=== PATIENT | male | born 1995 | race Caucasian/White ===

== ENCOUNTER 2016-12-19 23:42 | Emergency (ER) | payer OTHER ==
[2016-12-20 00:30] VITALS: BP 130/75; PULSE 80; TEMP 97.8; BMI 33.5
--- NOTE | 2016-12-20 01:29 | PDOC ---
[id number] No Limitations - History of Present Illness Presenting Symptoms: Chest Pain (subsided) Timing/Duration: reports: resolved prior to arrival <RicardoJesse - Last Filed: 12/20/16 02:43> <Michael Potts - Last Filed: 12/28/16 06:17> - General Chief Complaint: Pain, Acute Stated Complaint: LT ARM PAIN/NUMB/SOB/LT LEG NUMB/CHEST PAIN Time Seen by Provider: 12/20/16 00:33 Past History - Travel Traveled outside of the country in the last 30 days: No Close contact w/someone who was outside of country & ill: No - Past Medical History Hypercholesterolemia: Yes - Immunization History Immunization Up to Date: Yes - Psycho/Social/Smoking Cessation Hx Anxiety: No Suicidal Ideation: No Smoking Status: No Smoking History: Never smoked Have you smoked in the past 12 months: No Number of Cigarettes Smoked Daily: 0 Information on smoking cessation initiated: No Hx Alcohol Use: No Drug/Substance Use Hx: No Substance Use Type: Alcohol <RicardoJesse - Last Filed: 12/20/16 02:43> <Michael Potts - Last Filed: 12/28/16 06:17> - Past Medical History Allergies/Adverse Reactions: Allergies Allergy/AdvReac Type Severity Reaction Status Date / Time Penicillins Allergy Verified 05/29/16 00:30 Home Medications: Ambulatory Orders No Home Medications 0 dose .ROUTE UTDICT 08/27/12 Cardiac Specific PMH - Complaint Specific PMHX Abdominal Aortic Aneurysm: No <Modesto Silvaui - Last Filed: 12/20/16 02:43> Review of Systems - Review of Systems Able to Perform ROS?: Yes Is the patient limited [place]i proficient: No <RicardoJesse - Last Filed: 12/20/16 02:43> <Michael Potts - Last Filed: 12/28/16 06:17> - Review of Systems Comments:: 12/20/16 01:28 CONSTITUTIONAL: Absent: fever, chills, diaphoresis, generalized weakness, malaise, loss of appetite HEENT: Absent: rhinorrhea, nasal congestion, throat pain, throat swelling, difficulty swallowing, mouth swelling, ear pain, eye pain, visual Changes CARDIOVASCULAR: chest pain/subsided... Left upper arm numbness Absent: oss of consciousness, palpitations, irregular heart rate, peripheral edema RESPIRATORY: Absent: cough, shortness of breath, dyspnea with exertion, orthopnea, wheezing, stridor, hemoptysis GASTROINTESTINAL: Absent: abdominal pain, abdominal distension, nausea, vomiting, diarrhea, constipation, melena, hematochezia GENITOURINARY: Absent: dysuria, frequency, urgency, hesitancy, hematuria, flank pain, genital pain MUSCULOSKELETAL: Absent: myalgia, arthralgia, joint swelling SKIN: Absent: rash, itching, pallor HEMATOLOGIC/IMMUNOLOGIC: Absent: easy bleeding, easy bruising, lymphadenopathy, frequent infections ENDOCRINE: Absent: unexplained weight gain, unexplained weight loss, heat intolerance, cold intolerance NEUROLOGIC: Absent: headache, focal weakness or paresthesias, dizziness, unsteady gait, seizure, mental status changes, bladder or bowel incontinence PSYCHIATRIC: Absent: anxiety, depression, suicidal or homicidal ideation, hallucinations. ( Jesse Silva) *Physical Exam <Jesse Silva - Last Filed: 12/20/16 02:43> <Michael Potts - Last Filed: 12/28/16 06:17> - Vital Signs Last Vital Signs Temp Pulse Resp BP Pulse Ox 97.8 F 80 18 130/75 100 12/20/16 00:28 12/20/16 00:28 12/20/16 00:28 12/20/16 00:28 12/20/16 00:28 - Physical Exam Comments: 12/20/16 01:28 GENERAL: Well developed, well nourished. Awake and alert. No acute distress. HEENT: Normocephalic, atraumatic. PERRLA, EOMI. No conjunctival pallor. Sclera are non- icteric. Moist mucous membranes. Oropharynx is clear. NECK: Supple. Full ROM. No JVD. Carotid pulses 2+ and symmetric, without bruits. No thyromegaly. No lymphadenopathy. CARDIOVASCULAR: Regular rate and rhythm. No murmurs, rubs, or gallops. Distal pulses are 2+ and symmetric. PULMONARY: No evidence of respiratory distress. Lungs clear to auscultation bilaterally. No wheezing, rales or rhonchi. ABDOMINAL: Soft. Non-tender. Non-distended. No rebound or guarding. No organomegaly. Normoactive bowel sounds. MUSCULOSKELETAL Normal range of motion at all joints. No bony deformities or tenderness. No CVA tenderness. EXTREMITIES: No cyanosis. No clubbing. No edema. No calf tenderness. SKIN: Warm and dry. Normal capillary refill. No rashes. No jaundice. NEUROLOGICAL: Alert, awake, appropriate. Cranial nerves 2-12 intact. No deficits to light touch and temperature in face, upper extremities and lower extremities. No motor deficits in the in face, upper extremities and lower extremities. Normoreflexic in the upper and lower extremities. Normal speech. Toes are down- going bilaterally. Gait is normal without ataxia. PSYCHIATRIC: Cooperative. Good eye contact. Appropriate mood and affect. (Jesse Silva) Heart Score/ECG Review - History History: Slightly suspicious - Electrocardiogram EKG: Normal - Age Age: >/= 65 - Risk Factors Risk Factors Heart Score: Yes Hx Hypercholesterolemia Based on the list above the patient has:: No risk factors known - Troponin Troponin: </= normal limit - Score Heart Score - Total: 2 - ECG Intrepretation Rhythm: Regular Rhythm <Jesse Silva - Last Filed: 12/20/16 02:43> ED Treatment Course - LABORATORY CBC & Chemistry Diagram: 12/20/16 01:35 12/20/16 01:35 <Jesse Silva - Last Filed: 12/20/16 02:43> - LABORATORY CBC & Chemistry Diagram: 12/20/16 01:35 12/20/16 01:35 <Michael Potts - Last Filed: 12/28/16 06:17> - ADDITIONAL ORDERS Additional order review: 12/20/16 01:35 RBC 5.37 MCV 80.7 MCHC 34.0 RDW 13.3 MPV 10.9 Neutrophils % 49.9 Lymphocytes % 39.7 Monocytes % 6.8 Eosinophils % 2.6 Basophils % 1.0 Progress Note <Jesse Silva - Last Filed: 12/20/16 02:43> <Michael Potts - Last Filed: 12/28/16 06:17> - Progress Note Progress Note: 21-year-old male with past medical history of hyperlipidemia presents to the emergency department with his mother and sister complaining of 4/10 intermittent left-sided chest pain radiating to the left arm without n/v, fever/ chills, neck pain, sob, abd pain. Patient states he was sleeping on his left side for approximately 6 hours earlier in the day and noticed that tingling sensation this evening to the left upper arm. Cp is painful on touch. Patient reports the chest pain has subsided and the numbness to the left upper arm has been better since arriving to the emergency department. In private, patient states that he is under a tremendous amount of stress. 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 ( Jesse Silva) Medical Decision Making <Jesse Silva - Last Filed: 12/20/16 02:43> <Michael Potts - Last Filed: 12/28/16 06:17> - Medical Decision Making 12/28/16 06:16 ED Attending note: I was available, involved in the case, with the mid level provider as needed and in a limited capacity. (Michael Potts) *DC/Admit/Observation/Transfer - Discharge Dispostion Admit: No <Jesse Silva - Last Filed: 12/20/16 02:43> <Michael Potts - Last Filed: 12/28/16 06:17> Diagnosis at time of Disposition: Chest wall pain, Stress - Discharge Dispostion Disposition: HOME Condition at time of disposition: Stable - Referrals Referrals: Corina Levy MD [Primary Care Provider] - Mahendra Garcia MD [Staff Physician] - - Patient Instructions Printed Discharge Instructions: DI for Chest Pain, Stress (Alternative Therapy) Additional Instructions: Rest Follow up with your physician and the crime scene investigator listed on your discharge for an echocardiogram, Return to the ER for severe/persistent/worsening symptoms.
[2016-12-20 02:06] LABS: EOSINOPHIL 2.6 % (0-4.5); MCH 27.4 pg (25.7-33.7); MEAN CELL VOLUME 80.7 fl (80-96); MEAN PLT VOLUME 10.9 fl (7.5-11.1); NEUTROPHILS 49.9 % (42.8-82.8); PLATELET COUNT 161 K/MM3 (134-434); RDW 13.3 % (11.9-15.9); WHITE BLOOD COUNT 7.2 K/mm3 (4.0-10.0)
[2016-12-20 02:32] LABS: ALBUMIN 3.9 g/dl (3.4-5.0); ANION GAP 10 (8-16); BILIRUBIN,TOTAL 0.5 mg/dL (0.2-1.0); CALCIUM 8.8 mg/dL (8.5-10.1); CO2 28 mmol/L (21-32); CREATININE 0.8 mg/dL (0.7-1.3); GLUCOSE,RANDOM 91 mg/dL (74-106); SGOT/AST 31 U/L (15-37); SGPT/ALT 75 U/L (12-78); TOT PROT 6.8 g/dl (6.4-8.2)
[2016-12-20 02:34] LABS: ALK PHOS 86 U/L (45-117); TROPONIN I < 0.02 ng/ml (0.00-0.05)
--- NOTE | 2016-12-23 17:21 | EKG ---
Test Reason : Blood Pressure : / mmHG Vent. Rate : 072 BPM Atrial Rate : 072 BPM P-R Int : 162 ms QRS Dur : 086 ms QT Int : 374 ms P-R-T Axes : 037 026 035 degrees QTc Int : 409 ms NORMAL SINUS RHYTHM EARLY REPOLARIZATION NORMAL ECG WHEN COMPARED WITH ECG OF 26-JAN-2015 23:17, NO SIGNIFICANT CHANGE WAS FOUND Confirmed by AVA WHITTINGTON MD ([id number]) on 12/23/2016 5:20:45 PM Referred By: Confirmed By:AVA WHITTINGTON MD
== END 2016-12-20 03:10 | disposition home or self-care (01) ==
LOC: JER 23:42
DX: F43.9 Reaction to severe stress, unspecified (principal); E78.5 Hyperlipidemia, unspecified
CPT/HCPCS: 36415; 80053; 82550; 82553; 84484; 85025; 93005; 93010; 99282-25